=== PATIENT | male | born 1990 | race African-American/Black ===

== ENCOUNTER 2017-08-25 11:13 | Emergency (ER) | payer SELFPAY ==
[~2017-08-25] VITALS: Ht 167.6 cm; Wt 68.0 kg
[2017-08-25 11:22] VITALS: BP 117/77
--- NOTE | 2017-08-25 11:53 | ED INFLUENZA/URI COMPLAINT ---
History of Present Illness General Chief Complaint: General Adult Stated Complaint: BODY ACHES, LEFT EAR RINING, CHILLS, X 7 Source: patient Exam Limitations: no limitations Vital Signs & Intake/Output Vital Signs & Intake/Output Vital Signs Date Time Temp Pulse Resp B/P B/P Pulse O2 O2 Flow FiO2 Mean Ox Delivery Rate 08/25 1122 98.0 92 18 117/77 98 Room Air Allergies Coded Allergies: No Known Allergies (08/25/17) Reconcile Medications Azithromycin (Zithromax) 500 MG TABLET 1 TAB PO DAILY OTITIS MEDIA Meloxicam (Mobic) 15 MG TABLET 1 TAB PO DAILY PRN PAIN Triage Note: 27 YO MALE TO TRIAGE C/P BODY ACHES AND CONGESTION X8 DAYS. STATES HAS BEEN USING OTC MEDS WITHOUT RELIEF. STATES FEVERS AT HOME. AFEBRILE AT THIS TIME. Triage Nurses Notes Reviewed? yes Onset: Gradual Duration: constant Timing: recent history Severity: moderate Severity Numbers: 5 HPI: Patient is a 27-year-old male with a unremarkable past medical history presents emergency room with concerns of a 9 day history of not feeling well symptoms of body aches chills however in the past 48 hours patient is developing left-sided facial and ear pain. Past History Travel History Traveled to [place] past 21 day No Medical History Any Pertinent Medical History? 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 No Review of Systems Review of Systems Constitutional: Reports: see HPI, chills. EENTM: Reports: see HPI, ear pain. Respiratory: Reports: no symptoms. Cardiovascular: Reports: no symptoms. GI: Reports: no symptoms. Genitourinary: Reports: no symptoms. Musculoskeletal: Reports: no symptoms. Skin: Reports: no symptoms. Neurological/Psychological: Reports: no symptoms. Hematologic/Endocrine: Reports: no symptoms. Immunologic/Allergic: Reports: no symptoms. All Other Systems: Reviewed and Negative Physical Exam Physical Exam General Appearance: no apparent distress, alert, awake Head: atraumatic Ears, Nose, Throat: hearing grossly normal, pharynx normal Neck: normal inspection, supple Respiratory: normal breath sounds, chest non-tender Cardiovascular: regular rate/rhythm Peripheral Pulses: 2+ radial (R) Gastrointestinal: normal bowel sounds, soft, non-tender Back: normal inspection Extremities: normal inspection, normal capillary refill, no edema Neurologic/Psych: no motor/sensory deficits, awake Skin: intact, normal color, warm/dry Comments: Left ear noted almost fully impacted cerumen with partially visualized and erythematous tympanic membrane Auditory canal unremarkable Right ear auditory canal unremarkable tympanic membranes intact Core Measures Sepsis Present: No Sepsis Focused Exam Completed? No Progress Differential Diagnosis: influenza, meningitis, neutropenia, otitis, pneumonia, pharyngitis, sinusitis Plan of Care: Orders Procedure Date/time Status RAPID VIRAL INFLUENZA A 08/25 1121 Complete Microbiology 08/25 1124 NASOPHARYN: Influenza Virus A & B Rapid Smear - COMP Patient on initial examination was afebrile nontoxic-appearing partial visualization of the left ear showed mild concern of erythema to the tympanic membrane however the ear was fully on inspected, patient other physical exam findings was unremarkable, nontender sinus, clear lungs auscultation influenza was negative afebrile Initial ED EKG: none Departure Departure Disposition: HOME OR SELF CARE Condition: Stable Clinical Impression Primary Impression: Impacted cerumen of left ear Secondary Impressions: Otitis media of left ear Referrals: Patient Has No Primary Care Dr (PCP/Family) Additional Instructions: as discussed begin drinking plenty of water for hydration, begin the prescription meloxicam for pain and inflammation, begin prescription OF azithromycin for the full course, prescription is waiting at [facility]. Please follow up and establish [facility] as you will receive a phone call for an appointment. If symptoms worsen return to emergency room please obtain health insurance from [employer] website begin [id number] Debrox for your cerumen impaction Departure Forms: Customer Survey General Discharge Information Prescriptions: Current Visit Scripts Meloxicam (Mobic) 1 TAB PO DAILY PRN PAIN #7 TAB Azithromycin (Zithromax) 1 TAB PO DAILY #5 TAB
[2017-08-25] MEDS ORDERED: MOBIC15 M1 PO (12:19)
[2017-08-25] MEDS ORDERED: ZITHROMAX500 M2 PO (12:19)
== END 2017-08-25 12:58 ==
LOC: ERH 11:13
DX: H61.22 Impacted cerumen, left ear (principal); H66.92 Otitis media, unspecified, left ear
CPT/HCPCS: 87804; 87804-59